=== PATIENT | male | born 1970 | race Caucasian/White ===

== ENCOUNTER 2018-06-07 17:37 | Emergency (ER) | payer OTHER ==
[~2018-06-07] VITALS: Ht 172.7 cm; Wt 109.1 kg
[2018-06-07 18:53] LABS: URINE AMPHETAMINE SCREEN NEGATIVE (Neg); URINE BARBITUATE SCREEN NEGATIVE (Neg); URINE BENZODIAZEPINES SCREEN NEGATIVE (Neg); URINE CANNABINOID SCREEN POSITIVE (Neg); URINE COCAINE SCREEN NEGATIVE (Neg); URINE METHADONE SCREEN NEGATIVE (Neg); URINE OPIATE SCREEN NEGATIVE (Neg); URINE PHENCYCLIDINE SCREEN NEGATIVE (Neg)
[2018-06-07 19:28] LABS: BASOPHILS # (AUTO) 0.1 X10'3 (0-0.2); BASOPHILS % (AUTO) 0.9 % (0-1); EOSINOPHILS # (AUTO) 0.3 X10'3 (0-0.9); EOSINOPHILS % (AUTO) 2.3 % (0-6); HEMATOCRIT 43.7 % (42.0-52.0); HEMOGLOBIN 14.8 g/dl (14.0-17.9); LYMPHOCYTES # (AUTO) 2.5 X10'3 (1.1-4.8); LYMPHOCYTES % (AUTO) 20.9 % (21-51); MEAN CORPUSCULAR HEMOGLOBIN 31.3 PG (27.0-31.0); MEAN CORPUSCULAR HGB CONC 33.9 % (33.0-36.5); MEAN CORPUSCULAR VOLUME 92.4 FL (78-98); MEAN PLATELET VOLUME 8.6 FL (7.4-10.4); MONOCYTES # (AUTO) 0.7 X10'3 (0-0.9); MONOCYTES % (AUTO) 5.6 % (2-12); NEUTROPHILS # (AUTO) 8.5 X10'3 (1.8-7.7); NEUTROPHILS % (AUTO) 70.3 % (42-75); PLATELET COUNT 238 X10'3 (140-440); RED BLOOD COUNT 4.74 X10'6 (4.70-6.10); RED CELL DISTRIBUTION WIDTH 13.9 % (11.5-14.5); WHITE BLOOD COUNT 12.1 X10'3 (4.5-11.0)
[2018-06-07] MEDS ORDERED: OLAN2.5T3 PO (19:49)
[2018-06-07] MEDS ORDERED: BREX2TAB PO (19:49)
[2018-06-07] MEDS ORDERED: MULT-227 PO (19:49)
[2018-06-07] MEDS ORDERED: DIPH25CA83 PO ×2 (19:49)
[2018-06-07] MEDS ORDERED: ATOR20TA PO (19:49)
[2018-06-07] MEDS ORDERED: LORA2VIA30 IM (19:49)
[2018-06-07] MEDS ORDERED: CLON-527 PO (19:49)
[2018-06-07] MEDS ORDERED: LORA1TAB PO (19:49)
[2018-06-07] MEDS ORDERED: HYDR50CA PO (19:52)
[2018-06-07] MEDS ORDERED: ACET-2119 PO (19:52)
[2018-06-07] MEDS ORDERED: MAGN800O PO (19:52)
[2018-06-07] MEDS ORDERED: MAG355OR43 (19:52)
[2018-06-07] MEDS ORDERED: TRAM50TA2 PO (19:52)
[2018-06-07 19:55] LABS: ALANINE AMINOTRANSFERASE 43 U/L (12-78); ALBUMIN 3.8 G/DL (3.4-5.0); ALBUMIN/GLOBULIN RATIO 1.1 (1.1-1.5); ALKALINE PHOSPHATASE 90 IU/L (46-116); ANION GAP 10 (8-16); BILIRUBIN,TOTAL 0.3 MG/DL (0.1-1.0); BLOOD UREA NITROGEN 15 MG/DL (7-18); BUN/CREATININE RATIO 13.8 (5.4-32.0); CALCIUM 9.1 MG/DL (8.5-10.1); CHLORIDE 104 MMOL/L (99-107); CREATININE 1.09 MG/DL (0.60-1.10); ETHANOL < 0.010 GM/DL (0.0-0.010); POTASSIUM 3.5 MMOL/L (3.5-5.1); SODIUM 141 MMOL/L (135-145); TOTAL PROTEIN 7.2 G/DL (6.4-8.2); eGFR 72 ML/MIN
[2018-06-07 20:08] LABS: ACETAMINOPHEN < 2.0 UG/ML (10-30)
[2018-06-07 20:15] LABS: GLUCOSE 108 MG/DL (70-104)
[2018-06-07 20:26] LABS: ASPARTATE AMINO TRANSFERASE 32 U/L (10-37)
[2018-06-07] MEDS ORDERED: acetaminophen 325mg tablet PO ONE (23:20)
[2018-06-08] MEDS ORDERED: LORazepam 2 mg/ml vial IM PRN (00:10)
[2018-06-08] MEDS: traMADol 50MG tablet PO SCH ×4 (02:00→20:22)
[2018-06-08] MEDS ORDERED: hydrOXYzine 25 MG tablet PO PRN (04:10)
[2018-06-08] MEDS ORDERED: mag hydrox/Alum hydrox/simeth 30ml oral suspension PO PRN (04:10)
[2018-06-08] MEDS ORDERED: magnesium hydroxide 30ml (MOM) UD suspension PO PRN (04:10)
[2018-06-08] MEDS: BREXPIPRAZOLE 2 MG PO SCH (08:00)
[2018-06-08] MEDS ORDERED: LORazepam 1 MG tablet PO SCH (08:00)
[2018-06-08] MEDS: multivitamins, therapeutics tablet PO SCH (08:06)
[2018-06-08] MEDS: clonazePAM 1mg tablet PO SCH ×2 (08:06→20:21)
[2018-06-08] MEDS: acetaminophen 325mg tablet PO SCH ×4 (08:07→20:22)
[2018-06-08] MEDS: OLANZapine 2.5MG tablet PO SCH (08:08)
[2018-06-08] MEDS ORDERED: diphenhydrAMINE 25mg capsule PO SCH (09:20)
[2018-06-08] MEDS ORDERED: OLANZapine 2.5MG tablet PO ONE (12:05)
[2018-06-08] MEDS: diphenhydrAMINE 25mg capsule PO SCH ×2 (20:21→22:33)
[2018-06-08] MEDS: atorvastatin 20mg tablet PO SCH (20:23)
[2018-06-08] MEDS: olanzapine 10mg tablet PO SCH (20:23)
[2018-06-09] MEDS: traMADol 50MG tablet PO SCH ×4 (02:00→20:08)
[2018-06-09] MEDS: BREXPIPRAZOLE 2 MG PO SCH (08:00)
[2018-06-09] MEDS: clonazePAM 1mg tablet PO SCH ×2 (08:03→20:07)
[2018-06-09] MEDS: acetaminophen 325mg tablet PO SCH ×4 (08:03→21:00)
[2018-06-09] MEDS: OLANZapine 2.5MG tablet PO SCH (08:04)
[2018-06-09] MEDS: multivitamins, therapeutics tablet PO SCH (08:04)
[2018-06-09] MEDS: nicotine 7mg patch - 24hr TD SCH (17:02)
[2018-06-09] MEDS: atorvastatin 20mg tablet PO SCH (20:07)
[2018-06-09] MEDS: diphenhydrAMINE 25mg capsule PO SCH (20:08)
[2018-06-09] MEDS: olanzapine 10mg tablet PO SCH (20:08)
[2018-06-10] MEDS: traMADol 50MG tablet PO SCH ×4 (02:00→20:10)
[2018-06-10] MEDS: BREXPIPRAZOLE 2 MG PO SCH (08:00)
[2018-06-10] MEDS: nicotine 7mg patch - 24hr TD SCH (09:16)
[2018-06-10] MEDS: multivitamins, therapeutics tablet PO SCH (09:17)
[2018-06-10] MEDS: acetaminophen 325mg tablet PO SCH ×4 (09:17→20:10)
[2018-06-10] MEDS: clonazePAM 1mg tablet PO SCH ×2 (09:17→20:09)
[2018-06-10] MEDS: OLANZapine 2.5MG tablet PO SCH (09:18)
[2018-06-10] MEDS: diphenhydrAMINE 25mg capsule PO PRN ×2 (09:34→22:09)
[2018-06-10] MEDS: diphenhydrAMINE 25mg capsule PO SCH (20:10)
[2018-06-10] MEDS: olanzapine 10mg tablet PO SCH (20:10)
[2018-06-10] MEDS: atorvastatin 20mg tablet PO SCH (20:11)
[2018-06-11] MEDS: traMADol 50MG tablet PO SCH ×2 (02:12→07:15)
[2018-06-11] MEDS: multivitamins, therapeutics tablet PO SCH (07:13)
[2018-06-11] MEDS: clonazePAM 1mg tablet PO SCH (07:13)
[2018-06-11] MEDS: acetaminophen 325mg tablet PO SCH (07:14)
[2018-06-11] MEDS: OLANZapine 2.5MG tablet PO SCH (07:15)
[2018-06-11] MEDS: nicotine 7mg patch - 24hr TD SCH (07:19)
[2018-06-11 07:53] VITALS: BP 124/85
== END 2018-06-11 07:50 ==
LOC: ER 17:38
DX: F93.8 Other childhood emotional disorders (principal); M79.642 Pain in left hand; F12.90 Cannabis use, unspecified, uncomplicated; Z88.0 Allergy status to penicillin; Z88.8 Allergy status to other drugs, medicaments and biological substances; Z79.899 Other long term (current) drug therapy; W50.4XXA Accidental scratch by another person, initial encounter; Y93.89 Activity, other specified; Y92.89 Other specified places as the place of occurrence of the external cause; Y99.9 Unspecified external cause status
CPT/HCPCS: 36415; 80053; 80305; 80320; 80329; 85025; 99285; J3490; Q0163; Q0177